=== PATIENT | male | born 1950 | race Caucasian/White ===

== ENCOUNTER 2020-09-07 11:45 | Outpatient (CLI) | payer BC, MEDICARE ==
[2020-09-08 03:27] LABS: SARS-CoV-2 PCR by NAA Not Detected (NotDetected)
== END 2020-09-07 11:46 | disposition home or self-care (01) ==
LOC: CSHLAB 11:45
PROVIDERS: ATTEND Internal Medicine Critical Care Medicine
DX: Z20.822 Contact with and (suspected) exposure to COVID-19 (principal); R06.09 Other forms of dyspnea
CPT/HCPCS: 87635; U0003; U0005

== ENCOUNTER 2020-09-12 11:26 | Outpatient (CLI) | payer BC, MEDICARE | END 2020-09-12 11:27 | disposition home or self-care (01) | LOC: CSHCP 11:26 | PROVIDERS: ATTEND Internal Medicine Critical Care Medicine | DX: R06.09 Other forms of dyspnea (principal); J98.4 Other disorders of lung; R94.2 Abnormal results of pulmonary function studies | CPT/HCPCS: 94060; 94726; 94729; 94760 ==

== ENCOUNTER 2021-01-07 08:35 | Outpatient (CLI) | payer BC, MEDICARE ==
[2021-01-08 01:12] LABS: SARS-CoV-2 PCR by NAA Not Detected (NotDetected)
== END 2021-01-07 08:36 | disposition home or self-care (01) ==
LOC: CSHLAB 08:35
PROVIDERS: ATTEND Family Medicine
DX: Z20.822 Contact with and (suspected) exposure to COVID-19 (principal)
CPT/HCPCS: U0003; U0005

== ENCOUNTER 2021-04-04 11:09 | Outpatient (CLI) | payer BC, MEDICARE ==
[2021-04-05 12:03] LABS: SARS-CoV-2 PCR by NAA Not Detected (NotDetected)
== END 2021-04-04 11:10 | disposition home or self-care (01) ==
LOC: CSHLAB 11:09
PROVIDERS: ATTEND Internal Medicine Critical Care Medicine
DX: Z20.822 Contact with and (suspected) exposure to COVID-19 (principal)
CPT/HCPCS: U0003; U0005

== ENCOUNTER 2021-04-09 09:29 | Outpatient (CLI) | payer BC, MEDICARE | END 2021-04-09 09:30 | disposition home or self-care (01) | LOC: CSHCP 09:29 | PROVIDERS: ATTEND Internal Medicine Critical Care Medicine | DX: J45.22 Mild intermittent asthma with status asthmaticus (principal); J84.9 Interstitial pulmonary disease, unspecified; R94.2 Abnormal results of pulmonary function studies | CPT/HCPCS: 94060; 94726; 94729; 94760 ==

== ENCOUNTER 2022-10-20 12:11 | Outpatient (CLI) | payer BC, MEDICARE | END 2022-10-20 12:12 | disposition home or self-care (01) | LOC: CSHCT 12:11 | PROVIDERS: ATTEND Internal Medicine Critical Care Medicine | DX: J84.9 Interstitial pulmonary disease, unspecified (principal); J98.4 Other disorders of lung | CPT/HCPCS: 71250; 94010; 94726; 94729; 94760 ==

== ENCOUNTER 2024-12-29 09:13 | Outpatient (CLI) | payer MEDICARE | END 2024-12-29 09:14 | disposition home or self-care (01) | LOC: CSHCP 09:13 | PROVIDERS: ATTEND Internal Medicine Critical Care Medicine | DX: J84.9 Interstitial pulmonary disease, unspecified (principal); J44.9 Chronic obstructive pulmonary disease, unspecified | CPT/HCPCS: 94060; 94726; 94729; 94760 ==